=== PATIENT | female | born 1990 | race Native Hawaiian/Other Pacific Islander ===

== ENCOUNTER 2018-04-21 13:08 | Emergency (ER) | payer OTHER ==
[~2018-04-21] VITALS: Ht 157.5 cm; Wt 70.3 kg
[2018-04-21 14:28] LABS: PLATELET COUNT 297 K/uL (152-353); POTASSIUM 3.8 mmol/L (3.6-5.2)
[2018-04-21 20:20] VITALS: BP 115/34; TEMP 97.9
== END 2018-04-21 20:22 | disposition short-term general hospital (02) ==
LOC: ED 13:08
PROVIDERS: Emergency Medicine
DX: R10.10 Upper abdominal pain, unspecified (principal); D73.5 Infarction of spleen
CPT/HCPCS: 74022; 80053; 81000; 81025; 82150; 83690; 85027; 87086; 87088; 96365; 96375; 96376; 99285; J2175; J2405; J2550; Q9963

== ENCOUNTER → 2018-04-21 20:22 | Outpatient (CLI) | payer OTHER | END | disposition short-term general hospital (02) | LOC: AMB 20:22 | DX: R10.0 Acute abdomen (principal) | CPT/HCPCS: A0425; A0429 ==

== ENCOUNTER 2018-05-08 10:02 | Outpatient (CLI) | payer OTHER ==
[2018-05-08 10:17] LABS: PLATELET COUNT 375 K/uL (152-353)
[2018-05-08 10:28] LABS: POTASSIUM 3.7 mmol/L (3.6-5.2)
== END 2018-05-08 22:11 | disposition home or self-care (01) ==
LOC: LAB 10:02
PROVIDERS: Thoracic Surgery (Cardiothoracic Vascular Surgery)
DX: I35.8 Other nonrheumatic aortic valve disorders (principal); I33.9 Acute and subacute endocarditis, unspecified
CPT/HCPCS: 80048; 80202; 85027

== ENCOUNTER 2018-05-09 04:46 | Emergency (ER) | payer OTHER ==
[~2018-05-09] VITALS: Ht 157.5 cm; Wt 70.3 kg
[2018-05-09 05:39] LABS: PLATELET COUNT 395 K/uL (152-353)
[2018-05-09 05:49] LABS: POTASSIUM 3.4 mmol/L (3.6-5.2)
[2018-05-09 08:36] VITALS: BP 133/80; TEMP 98.3
== END 2018-05-09 09:08 | disposition home or self-care (01) ==
LOC: ED 04:46
DX: R65.10 Systemic inflammatory response syndrome (SIRS) of non-infectious origin without acute organ dysfunction (principal); Z95.2 Presence of prosthetic heart valve; R00.0 Tachycardia, unspecified
CPT/HCPCS: 36591; 80053; 81000; 83605; 85027; 87040; 93005; 99283

== ENCOUNTER 2018-05-11 09:55 | Outpatient (CLI) | payer OTHER ==
[2018-05-11 10:15] LABS: PLATELET COUNT 519 K/uL (152-353)
[2018-05-11 10:34] LABS: POTASSIUM 4.3 mmol/L (3.6-5.2)
== END 2018-05-11 19:11 | disposition home or self-care (01) ==
LOC: LAB 09:55
PROVIDERS: Thoracic Surgery (Cardiothoracic Vascular Surgery)
DX: I35.8 Other nonrheumatic aortic valve disorders (principal); I33.9 Acute and subacute endocarditis, unspecified; A41.1 Sepsis due to other specified staphylococcus; I51.89 Other ill-defined heart diseases
CPT/HCPCS: 80048; 80202; 85027; 85651; 86140

== ENCOUNTER 2018-05-18 09:44 | Outpatient (CLI) | payer OTHER ==
[2018-05-18 10:22] LABS: POTASSIUM 4.2 mmol/L (3.6-5.2)
[2018-05-18 11:40] LABS: PLATELET COUNT 447 K/uL (152-353)
== END 2018-05-18 19:35 | disposition home or self-care (01) ==
LOC: LAB 09:44
PROVIDERS: Thoracic Surgery (Cardiothoracic Vascular Surgery)
DX: A41.1 Sepsis due to other specified staphylococcus (principal); I33.0 Acute and subacute infective endocarditis; Z45.2 Encounter for adjustment and management of vascular access device; Z79.2 Long term (current) use of antibiotics; Z95.2 Presence of prosthetic heart valve; Z51.81 Encounter for therapeutic drug level monitoring
CPT/HCPCS: 80048; 80202; 85027; 85651; 86140

== ENCOUNTER 2018-05-22 12:02 | Outpatient (CLI) | payer OTHER ==
[2018-05-22 12:55] LABS: PLATELET COUNT 482 K/uL (152-353)
[2018-05-22 13:02] LABS: POTASSIUM 3.9 mmol/L (3.6-5.2)
== END 2018-05-22 20:25 | disposition home or self-care (01) ==
LOC: LAB 12:02
PROVIDERS: Thoracic Surgery (Cardiothoracic Vascular Surgery)
DX: A41.1 Sepsis due to other specified staphylococcus (principal); I33.0 Acute and subacute infective endocarditis; Z45.2 Encounter for adjustment and management of vascular access device; Z79.2 Long term (current) use of antibiotics; Z95.4 Presence of other heart-valve replacement; Z51.81 Encounter for therapeutic drug level monitoring
CPT/HCPCS: 80048; 80202; 85027; 85651; 86140

== ENCOUNTER 2018-05-25 10:03 | Outpatient (CLI) | payer OTHER ==
[2018-05-25 10:27] LABS: PLATELET COUNT 408 K/uL (152-353)
[2018-05-25 10:47] LABS: POTASSIUM 4.1 mmol/L (3.6-5.2)
== END 2018-05-25 21:19 | disposition home or self-care (01) ==
LOC: LAB 10:03
PROVIDERS: Thoracic Surgery (Cardiothoracic Vascular Surgery)
DX: A41.1 Sepsis due to other specified staphylococcus (principal); I33.0 Acute and subacute infective endocarditis; Z45.2 Encounter for adjustment and management of vascular access device; Z51.81 Encounter for therapeutic drug level monitoring; Z79.2 Long term (current) use of antibiotics; Z95.4 Presence of other heart-valve replacement
CPT/HCPCS: 80048; 80202; 85027; 85651; 86140

== ENCOUNTER 2018-05-29 09:57 | Outpatient (CLI) | payer OTHER ==
[2018-05-29 11:07] LABS: PLATELET COUNT 361 K/uL (152-353)
[2018-05-29 11:34] LABS: POTASSIUM 4.1 mmol/L (3.6-5.2)
== END 2018-05-29 23:03 | disposition home or self-care (01) ==
LOC: LAB 09:57
PROVIDERS: Thoracic Surgery (Cardiothoracic Vascular Surgery)
DX: A41.1 Sepsis due to other specified staphylococcus (principal); I33.0 Acute and subacute infective endocarditis; Z45.2 Encounter for adjustment and management of vascular access device; Z51.81 Encounter for therapeutic drug level monitoring; Z79.2 Long term (current) use of antibiotics; Z95.4 Presence of other heart-valve replacement
CPT/HCPCS: 80048; 80202; 85027; 85651; 86140

== ENCOUNTER 2018-06-01 09:36 | Outpatient (CLI) | payer OTHER ==
[2018-06-01 10:26] LABS: PLATELET COUNT 361 K/uL (152-353)
[2018-06-01 10:41] LABS: POTASSIUM 4.1 mmol/L (3.6-5.2)
== END 2018-06-01 22:49 | disposition home or self-care (01) ==
LOC: LAB 09:36
PROVIDERS: Thoracic Surgery (Cardiothoracic Vascular Surgery)
DX: A41.1 Sepsis due to other specified staphylococcus (principal); I33.0 Acute and subacute infective endocarditis; Z45.2 Encounter for adjustment and management of vascular access device; Z79.2 Long term (current) use of antibiotics; Z95.4 Presence of other heart-valve replacement; Z51.81 Encounter for therapeutic drug level monitoring
CPT/HCPCS: 36415; 80048; 80202; 85027; 85651; 86140

== ENCOUNTER 2018-06-05 11:04 | Outpatient (CLI) | payer OTHER ==
[2018-06-05 12:11] LABS: PLATELET COUNT 352 K/uL (152-353)
[2018-06-05 12:50] LABS: POTASSIUM 4.1 mmol/L (3.6-5.2)
== END 2018-06-05 20:29 | disposition home or self-care (01) ==
LOC: LAB 11:04
PROVIDERS: Thoracic Surgery (Cardiothoracic Vascular Surgery)
DX: A41.1 Sepsis due to other specified staphylococcus (principal); I33.0 Acute and subacute infective endocarditis; Z45.2 Encounter for adjustment and management of vascular access device; Z79.2 Long term (current) use of antibiotics; Z51.81 Encounter for therapeutic drug level monitoring; Z95.4 Presence of other heart-valve replacement
CPT/HCPCS: 80048; 80202; 85027; 85651; 86140

== ENCOUNTER 2018-06-08 12:27 | Outpatient (CLI) | payer OTHER ==
[2018-06-08 12:55] LABS: PLATELET COUNT 380 K/uL (152-353)
[2018-06-08 13:02] LABS: POTASSIUM 4.3 mmol/L (3.6-5.2)
== END 2018-06-08 19:52 | disposition home or self-care (01) ==
LOC: LAB 12:27
PROVIDERS: Thoracic Surgery (Cardiothoracic Vascular Surgery)
DX: A41.1 Sepsis due to other specified staphylococcus (principal); I33.0 Acute and subacute infective endocarditis; Z45.2 Encounter for adjustment and management of vascular access device; Z79.2 Long term (current) use of antibiotics; Z51.81 Encounter for therapeutic drug level monitoring; Z95.4 Presence of other heart-valve replacement
CPT/HCPCS: 80048; 80202; 85027; 85651; 86140

== ENCOUNTER 2018-06-12 10:08 | Outpatient (CLI) | payer OTHER ==
[2018-06-12 10:42] LABS: PLATELET COUNT 354 K/uL (152-353)
[2018-06-12 10:59] LABS: POTASSIUM 3.8 mmol/L (3.6-5.2)
== END 2018-06-12 22:00 | disposition home or self-care (01) ==
LOC: LAB 10:08
PROVIDERS: Thoracic Surgery (Cardiothoracic Vascular Surgery)
DX: A41.1 Sepsis due to other specified staphylococcus (principal); I33.0 Acute and subacute infective endocarditis; Z45.2 Encounter for adjustment and management of vascular access device; Z79.2 Long term (current) use of antibiotics; Z51.81 Encounter for therapeutic drug level monitoring; Z95.4 Presence of other heart-valve replacement
CPT/HCPCS: 80048; 80202; 85027; 85651; 86140

== ENCOUNTER 2019-12-19 06:49 | Outpatient (CLI) | payer OTHER ==
[2019-12-19 07:55] LABS: PLATELET COUNT 301 K/uL (152-353)
[2019-12-19 08:02] LABS: POTASSIUM 3.8 mmol/L (3.6-5.2)
== END 2019-12-19 22:26 | disposition home or self-care (01) ==
LOC: LABW 06:49
PROVIDERS: Emergency Medicine
DX: Z00.00 Encounter for general adult medical examination without abnormal findings (principal); Z95.2 Presence of prosthetic heart valve
CPT/HCPCS: 36415; 80053; 80061; 84436; 84443; 85027

== ENCOUNTER 2020-08-26 06:51 | Outpatient (CLI) | payer OTHER ==
[2020-08-26 08:08] LABS: PLATELET COUNT 296 K/uL (152-353)
[2020-08-26 08:22] LABS: POTASSIUM 3.4 mmol/L (3.6-5.2)
== END 2020-08-26 19:07 | disposition home or self-care (01) ==
LOC: LABW 06:51
PROVIDERS: Internal Medicine
DX: I38 Endocarditis, valve unspecified (principal); I10 Essential (primary) hypertension
CPT/HCPCS: 36415; 80053; 80061; 81000; 84439; 84443; 85027; 85651

== ENCOUNTER 2021-03-04 07:02 | Outpatient (CLI) | payer OTHER ==
[2021-03-04 08:28] LABS: PLATELET COUNT 349 K/uL (152-353)
== END 2021-03-04 21:12 | disposition home or self-care (01) ==
LOC: LABW 07:02
PROVIDERS: ATTEND Internal Medicine
DX: I10 Essential (primary) hypertension (principal); D64.9 Anemia, unspecified; E55.9 Vitamin D deficiency, unspecified
CPT/HCPCS: 36415; 80053; 80061; 81000; 82306; 84439; 84443; 85027

== ENCOUNTER 2022-01-19 10:41 | Outpatient (CLI) | payer OTHER | END 2022-01-19 18:57 | disposition home or self-care (01) | LOC: RESP 10:41 | PROVIDERS: ATTEND Internal Medicine Cardiovascular Disease | DX: I10 Essential (primary) hypertension (principal) ==

== ENCOUNTER 2022-07-04 21:37 | Emergency (ER) | payer OTHER ==
[~2022-07-04] VITALS: Ht 160 cm; Wt 86.2 kg
[2022-07-04 22:33] VITALS: BP 120/75; TEMP 98.2
== END 2022-07-04 22:33 | disposition home or self-care (01) ==
LOC: ED 21:37
DX: R19.8 Other specified symptoms and signs involving the digestive system and abdomen (principal); K21.9 Gastro-esophageal reflux disease without esophagitis
CPT/HCPCS: 99282

== ENCOUNTER 2022-07-05 11:56 | Outpatient (CLI) | payer OTHER ==
[2022-07-05 12:45] LABS: PLATELET COUNT 365 K/uL (152-353)
[2022-07-05 13:20] LABS: POTASSIUM 3.2 mmol/L (3.6-5.2)
== END 2022-07-05 18:54 | disposition home or self-care (01) ==
LOC: LABW 11:56
PROVIDERS: ATTEND Internal Medicine
DX: K59.01 Slow transit constipation (principal)
CPT/HCPCS: 36415; 80053; 84439; 84443; 85027

== ENCOUNTER 2023-02-23 09:42 | Outpatient (CLI) | payer OTHER | END 2023-02-23 19:03 | disposition home or self-care (01) | LOC: RESP 09:42 | PROVIDERS: ATTEND Internal Medicine Cardiovascular Disease | DX: I10 Essential (primary) hypertension (principal) ==

== ENCOUNTER 2023-07-27 11:52 | Outpatient (CLI) | payer OTHER | END 2023-07-27 19:18 | disposition home or self-care (01) | LOC: RESP 11:52 | PROVIDERS: ATTEND Family Medicine | DX: I49.9 Cardiac arrhythmia, unspecified (principal); R06.6 Hiccough | CPT/HCPCS: 93005 ==